=== PATIENT | female | born 1945 | race Caucasian/White ===

== ENCOUNTER → 2019-01-19 14:32 | Outpatient (CLI) | payer MEDICARE, OTHER, SELFPAY ==
--- NOTE | 2019-01-19 14:39 | VDLE_ITS ---
Reason For Study: Pain/Swelling Procedure LEFT Exam performed in department. GSV is normal. A preliminary report was called and/or faxed CFV is compressible, spontaneous, phasic, to [place]. competent, and demonstrates normal augmentation. FV is compressible, spontaneous, phasic, competent and demonstrates normal augmentation. POP V is compressible, spontaneous, phasic, competent and demonstrates normal augmentation. T/P Trunk is compressible. PTV is compressible. LT PerV is compressible. Structure noted in the left popliteal fossa measuring 0.97 x 2.96 x 6.14 cm with a small vessel noted in the distal segment with venous and arterial flow. Interpretation Summary There is no evidence of left lower extremity deep vein thrombosis. Left great saphenous vein appears patent and compressible segmentally. Left popliteal 2.96 x 0.97 x 6.14 cm structure. In the distal aspect of this finding there is a small vessel that appears to have both venous and arterial flow. Clinical correlation or possible additional CT/MRI imaging would be appropriate Ordering Physician: Graeme Godinez Referring Physician: Graeme Godinez Performed By: Alison Jacome RVT
== END ==
PROVIDERS: Family Provider Student in an Organized Health Care Education/Training Program; PCP Student in an Organized Health Care Education/Training Program; Referring Provider Student in an Organized Health Care Education/Training Program; Visit Provider Student in an Organized Health Care Education/Training Program
DX: M79.89 Other specified soft tissue disorders (principal); M25.562 Pain in left knee; M79.662 Pain in left lower leg
CPT/HCPCS: 93971

== ENCOUNTER 2020-01-13 16:04 | Emergency (ER) | payer MEDICARE, OTHER, SELFPAY ==
[2020-01-13 16:04] VITALS: BP 147/79; PULSE 95; RESP 16; TEMP 36.2; O2SAT 99; BMI 26.5
--- NOTE | 2020-01-13 16:19 | VDLE_ITS ---
Reason For Study: SWELLING RIGHT LEFT CFV is compressible, spontaneous, phasic, CFV is compressible, spontaneous, phasic, competent and demonstrates normal competent, and demonstrates normal augmentation. augmentation. Procedure POP V is compressible, spontaneous, phasic, Exam performed portable in ED. competent and demonstrates normal A preliminary report was called and/or faxed augmentation. to ED. T/P Trunk is compressible. PTV is compressible. LT PerV is compressible. LT FV does not fill with color and is DILATED and NONCOMPRESSIBLE from the mid to distal portion. The remainder of the FV is compressible and fills with color. LT GSV is compressible above the knee. LT GSV below the knee is DILATED and NONCOMPRESSIBLE. Interpretation Summary Acute deep vein thrombosis is noted in the left mid- and distal femoral vein. The remainder of the left lower extremity deep venous system is patent and compressible. The left common femoral vein and popliteal vein are competent. Acute superficial thrombophlebitis is noted in the left great saphenous vein below the knee. The left great saphenous vein is patent and compressible above the knee. Ordering Physician: Ronni Rios Referring Physician: TRINO GUTIERREZ Performed By: Shraddha Madden RDCS, RVT
--- NOTE | 2020-01-13 16:20 | ED.VIS.GEN ---
History of Present Illness Chief Complaint: Edema Narrative: This patient is a 74-year-old female who presents with left leg pain redness and swelling. She had noticed some mild swelling in both of her legs for couple of days. Today however she woke with pain on the inside of her left calf and swelling seem to worsen through the day and she noticed a red patch over the medial upper calf. No prior history of DVT. She had similar symptoms with a Johnston's cyst. No recent travel or surgery. No immobilization. No known coagulopathies. No history of DVT or pulmonary embolism. No chest pain or shortness of breath. Review of systems otherwise negative no recent illness. Past Medical History - Allergies and Home Meds Allergies/Adverse Reactions: Allergies No Known Allergies Allergy (Verified 01/13/20 16:06) Primary Care Physician: Graeme Godinez DO [Primary Care Provider] - Past Medical History: None Smoking Status: Never smoker Review of Systems All systems negative except as indicated General: Denies: Fever Eyes: Denies: Visual changes - bilaterally Cardiovascular: Denies: Chest pain Respiratory: Denies: Dyspnea Gastrointestinal: Denies: Vomiting, Diarrhea Musculoskeletal: Reports: Swelling, Extremity Pain Skin: Denies: Rash Neurological: Denies: Headache Physical Exam Vital Signs/Narrative: Vital Signs Temp Pulse Resp BP Pulse Ox 01/13/20 16:04 97.2 F L 95 16 147/79 H 99 Inital Vital Signs reviewed: Yes General: Well nourished Head: Normocephalic Eyes: EOMI ENT: Moist mucous membranes Neck: Supple Cardiovascular: Regular rate, Regular rhythm Respiratory: No distress, CTA bilaterally Abdomen: Soft Extremities: - - Patient has a mild symmetric lower extremity edema she has a small area of erythema and a palpable cord along the left medial upper calf most consistent with a superficial thrombophlebitis. She does have multiple varicosities. The calf itself is nontender she has an easily palpable dorsalis pedis Skin: Normal color Neurological: Alert Psychological: Normal affect Diagnostic/Tx/Re-eval - Medical Decision Making duplex shows that the left femoral vein is dilated none compressible from the mid to distal portion. The left GSV is dilated noncompressible. The plant and maintenance technician also reported evidence of a superficial thrombus on the left medial upper calf. Patient was advised on supportive care for superficial thrombophlebitis. However she will also need to undergo treatment for DVT. Serum labs were obtained which are unremarkable. Patient will be started on Xarelto. Patient advised to follow-up with her primary care physician. She does understand return for new or worsening symptoms. ED Disposition - Plan for ED Patient: Disposition: Home or Assisted Living Diagnosis: DVT (deep venous thrombosis) Instructions: ED DVT Prescriptions: Rivaroxaban [Xarelto] 15 mg PO BID #42 tab Prescription Printed Referrals: Graeme Godinez DO [Primary Care Provider] -
[2020-01-13 17:21] LABS: Absolute Lymphocyte Count 2.16 X10^3/uL (0.83-4.51); Absolute Neutrophil Count 2.2 X10^3/uL (2.0-7.7); Basophil# 0.01 X10^3/uL; Basophil% 0.2 % (0-1); Eosinophil# 0.05 X10^3/uL; Hematocrit 37.4 % (37-47); Hemoglobin 11.6 g/dL (12.0-15.0); Lymphocyte # 2.16 X10^3/ul (4.0); Lymphocyte % 43.4 % (19-41); Mean Corpuscular Hgb 27.9 pg (27.0-32.0); Mean Corpuscular Volume 89.9 fL (81-99); Mean Platelet Vol. 8.4 fl (6.2-12.0); NRBC Flagged by Analyzer 0 % (0-5); Neutrophil # 2.24 X10^3/uL (2.7-7.7); Platelet Count 209 K/mm3 (150-450); RBC Distribution Width CV 14.9 % (11.6-14.6); Red Blood Count 4.16 M/mm3 (4.2-5.4)
[2020-01-13 17:25] LABS: International Normalized Ratio 1.1; Prothrombin Time (Protime)PT. 13.5 SECONDS (11.7-14.9)
[2020-01-13 17:36] LABS: Anion Gap 5 (5-15); BUN 10 mg/dL (7-18); BUN/Creat Ratio 11.6 RATIO (10-20); Calcium,Total 8.9 mg/dL (8.5-10.1); Chloride 106 mmol/L (98-107); Creatinine, Serum 0.86 mg/dL (0.55-1.02); EST Glomerular Filtration Rate 69 mL/min (>60); Est Glom Filt Rate - Afr Amer 83 mL/min (>60); Estimated Creatinine Clearance 48.19 ml/min; Glucose 109 mg/dL (74-106); Potassium 3.7 mmol/L (3.5-5.1); Sodium Level 139 mmol/L (136-145)
[2020-01-13] MEDS: Rivaroxaban 15 MG Tablet PO (18:00)
--- NOTE | 2020-01-13 21:06 | ED.RN ---
CALLED IN. WAS AT PHARMACY TO FILL MEDICATIONS AND COST OF MEDICATION WAS $700 TO FILL MEDICINE. SPOKE WITH DR. ROQUE WHO WOULD SWITCH MEDICINE TO ELIQUIS 10 MG PO. SPOKE WITH PHARMACY AT THIS TIME. THEY RAN MEDICINE AT THIS COST WOULD BE OVER $500 TO FILL. CALLED AND UPDATED ON THIS. PER DR. ROQUE MEDICINE WOULD NEED TO BE SWITCHED OR PATIENT WOULD REQUIRE ADMISSION TO START ON COUDAMIN AND PROPER TREATMENT FOR DVT. EXPRESSED VERBAL UNDERSTANDING AND WAS ATTEMPTING TO REACH ANOTHER PHARMACY TO SEE IF THE VENTURA WAS CHEAPER. WILL BRING PATIENT IN IF UNABLE TO FIND A REASONABLE VENTURA.
== END 2020-01-13 18:05 | disposition home or self-care (01) ==
PROVIDERS: Emergency Provider Emergency Medicine; PCP Student in an Organized Health Care Education/Training Program
DX: I82.412 Acute embolism and thrombosis of left femoral vein (principal)
CPT/HCPCS: 80048; 85025; 85610; 93971; 99283; A4216